=== PATIENT | male | born 1970 ===

== ENCOUNTER 2017-01-31 17:17 | Inpatient (IN) | payer OTHER ==
--- NOTE | ~2017-01-31 | MR18 ---
[facility] A Service of [facility] & [facility] RADIOLOGY TEXT RESULTS PATIENT: LAQUITA MANCIA LOCATION: [facility] 547-01 : [birth year] UNIT #: [id number] AGE: [address]: Cristobal Blackman MD SEX: M ORDER DR: [id number] [facility] [address] [place], [place] [address] [id number] MR#: [id number] Acc #: [id number] NAME: LAQUITA MANCIA : 1970 SEX: M STUDY DATE/TIME: 02/01/2017 17:02 UNIT: [facility] ROOM: [facility] STUDY DESCRIPTION: MR Brain Wo Contrast Attending Physician: Cristobal Blackman M.D. Ordering Physician: Cristobal Blackman M.D. MRI CENTER REPORT This report is preliminary unless electronic signature is present. EXAM MR brain. INDICATIONS Confusion and aphasia. Slurred speech. TECHNIQUE Multiplanar MRI of the brain without contrast. COMPARISON CT head dated 01/31/2017 and 01/07/2017. FINDINGS The midline structures and craniocervical junction are within normal limits. The ventricles and basilar cisterns are normal in size and configuration. No extraaxial collections. Vascular flow voids are unremarkable. IMPRESSION 1. No acute intracranial findings. No acute ischemia. Dictated by... Saul Goode M.D. THIS IS AN ELECTRONICALLY VERIFIED REPORT Saul Goode M.D. at 02/01/2017 11:41 PM MERLENE/logan TD: 02/01/2017 23:26 JOB #: [id number] MRI CENTER REPORT Page 1 of 1 COPY
--- NOTE | ~2017-01-31 | DS ---
Unit #: [id number] #: [id number] Patient: LIVAN BONDS [id number] [address] [address] [id number] I MR#: [id number] NAME: LIVAN BONDS ROOM: 547 Age: 47 Sex: M Admission Date: 01/31/2017 : 1970 Discharge Date: 02/02/2017 Attending Physician: Cristobal Blackman M.D. DISCHARGE SUMMARY PRIMARY DIAGNOSIS Toxic metabolic encephalopathy. SECONDARY DIAGNOSES 1. Urinary retention. 2. Acute kidney injury. 3. History of atrial fibrillation. 4. Chronic back and leg pain. 5. Chronic intermittent leg swelling, per patient. 6. Gastroesophageal reflux disease. 7. Anxiety and depression. HOSPITAL COURSE Mr. Livan Bonds is a 47-year-old male, who is Hungarian speaking, who has a very complicated and sometimes contradictory history. He was admitted primarily for acute kidney injury which, at the time of admission, was suggested to be secondary to ibuprofen, hydrochlorothiazide, Lasix and urinary retention. He certainly does appear to have urinary retention although, at the time of discharge, I am informed by the patient that he is not on Lasix or hydrochlorothiazide although he has been in the past for chronic leg edema. I am unsure how reliable the patient and his rajanie's sister is. Regardless, the patient was treated with Flomax and had a single catheterization of his bladder and then the Hemphill was out for the remaining next 48 hours. Despite this, his creatinine came down from 2.1 to 1.3. I kept him on Flomax and will continue him on Flomax at discharge. Regarding his confusion, it appeared primarily consistent with a toxic or metabolic encephalopathy although he did have some component of aphasia as well so I did check an MRI to make sure he didn't have any evidence of stroke or brain lesion. No stroke or brain lesion was seen and, after the MRI had been done, his outpatient medication list was updated and was markedly different from that listed in the history and physical. The current list that I have for his home medications, and he is somewhat uncertain about this, include: 1. Amiodarone 200 mg daily. 2. Lactulose 10 g p.o. daily. 3. Gabapentin 300 mg p.o. t.i.d. 4. Amitriptyline 100 mg p.o. q. h.s. 5. Lorazepam 1 mg p.o. q.i.d. 6. Hydrocodone 10 mg p.o. q.6 hours p.r.n. pain. 7. Omeprazole 20 mg p.o. daily. 8. Protonix 40 mg p.o. daily. Unit #: [id number] #: [id number] Patient: LIVAN BONDS 9. Baclofen 20 mg p.o. t.i.d. 10. Folic acid 1 mg p.o. daily. 11. Thiamine 100 mg p.o. daily. Not noted on my current list but what has been noted on earlier lists, include: 12. Flecainide. 13. Xarelto. 14. Eliquis. 15. Digoxin. 16. Lyrica. 17. Claritin. Overall, this compilation of polypharmacy in addition to the patient being unclear as to exactly which medications he is on, in addition to the patient having a history of substance abuse certainly suggests that medications played a part in his confusion. His confusion improved daily while here in the hospital. He appears to have had urinary retention which either could be due to benign prostatic hypertrophy or possibly, as a second effect of his medications. After his renal function began to decline, certainly the toxic effects of his polypharmacy could have become more pronounced as his kidneys failed to get rid of the drugs from his system. The patient believes that his antidepressant was the most recently added medication and so I am going to instruct him to stop that for now along with several of his other home medications. I have advised him to stop his gabapentin, stop his amitriptyline, stop his lorazepam, stop his proton pump inhibitors and stop his baclofen as well as stopping Lyrica if he is, in fact, on that although it is not on my most recent home medication list. I suspect staying off those medications will result in continued improvements in his mental status. I have advised him to follow up with his primary care physician for his chronic issues with back and leg pain as well as chronic issues with leg weakness and, in the meantime, I have advised him to use the cane that has been provided to him on previous visits with his regular physician. Due to my concern that my home med list may be somewhat inaccurate, I have advised him that he can restart any medications other than those specifically listed in the Do Not Restart list that I noted above. The only new prescriptions I am going to give the patient is for Lasix 20 mg p.o. daily because the patient and family are both very concerned about his recurrent intermittent edema of his bilateral lower extremities as well as Flomax 0.4 mg q. h.s. I have advised him the need to follow up with the primary care physician within one to two weeks. Metabolic evaluation for confusion was essentially negative as his acute kidney injury alone wouldn't really cause that confusion but includes a negative renal ultrasound, a normal B12 level, a normal TSH, a mildly low free T4 at 0.34, a normal ammonia level at 19. His INR was 1.2 and his PTT was 32, possibly suggesting some history of liver disease taken in coordination with his new med list that was provided to me late in his hospitalization that includes lactulose. His liver function studies and albumin, however, are normal and he did have a digoxin level done here in the hospital at the time of presentation which was 1.3 suggesting that he is, in fact, on digoxin at home. The patient reports using multiple pharmacies and I am unable to get a complete med list from a particular pharmacy. DISCHARGE DISPOSITION To home. Unit #: [id number] #: [id number] Patient: LIVAN BONDS DISCHARGE STATUS Stable. DISCHARGE ACTIVITY With his cane at all times and he can consider getting a walker or a wheeled walker if he feels that this farnaz be helpful for his two and a half year history of recurrent falls. At this time, he doesn't appear to require a wheeled walker based on his ambulation and my exam. DISCHARGE DIET Unrestricted. DISCHARGE FOLLOWUP With his primary care physician in one to two weeks. DISCHARGE MEDICATIONS Please note that this list may be somewhat inaccurate. Please see detailed discussion above in the History of Present Illness. 1. Flomax 0.4 mg p.o. q. h.s. 2. Lasix 20 mg p.o. q. a.m. 3. Amiodarone 200 mg p.o. daily. 4. Lactulose 10 g p.o. daily. 5. Hydrocodone with Tylenol 10/325, one tablet p.o. q.6 hours p.r.n. pain. 6. Folic acid 1 mg p.o. daily. 7. Thiamine 100 mg p.o. daily. The patient cannot remember the name of his previous primary care physician and he is reportedly set up to see a new primary care physician this week. Dictated by... Cristobal Blackman M.D. LITZY/jodee TD: 02/03/2017 07:58 JOB #: [id number] DISCHARGE SUMMARY Page 1 of 1 X Cristobal Blackman MD X DISCHARGE SUMMARY
--- NOTE | ~2017-01-31 | HP ---
Unit #: [id number] #: [id number] Patient: LAQUITA MANCIA [id number] [address] [place], [place] [address] [id number] I MR#: [id number] NAME: LAQUITA MANCIA ROOM: 547 Age: 47 Sex: M Admission Date: 01/31/2017 : 1970 Attending Physician: Ayesha Martinez M.D. HISTORY AND PHYSICAL CHIEF COMPLAINT Acute kidney injury and confusion. HISTORY This 47-year-old male with atrial fibrillation, hypertension, hyperlipidemia, possibly COPD versus asthma, was transferred from [facility] emergency department for acute kidney injury and confusion. The patient himself is a very poor historian, and unfortunately I was unable to get the initial call from [facility] in regards to this patient. Family is not present, nor are they answering their phone. Apparently he was seen at [facility] emergency department 01/07/2017 for leg swelling. A CTA of the chest was performed, which was negative for a PE, Dopplers of the legs were performed, which were negative for blood clots. Head CT at that time was negative. Currently he has continued to have some leg swelling, has felt a bit short of breath, decreased p.o. intake and feels as if he is urinating frequently. He also feels confused. When he presented to [facility] emergency department earlier today, labs showed acute kidney injury with a creatinine of 2.8 and BUN of 33. On examination he has a very full bladder with suprapubic tenderness. Therefore, our nurse cathed him, and he had 725 mL of urine in his bladder. He also takes Lasix, hydrochlorothiazide and ibuprofen. Urine tox screen is positive for TCA only. He states that he no longer drinks alcohol, stopped drinking about one month ago. PAST MEDICAL HISTORY 1. Previous history of alcohol abuse. 2. Anxiety and depression. 3. Atrial fibrillation for which the patient is anticoagulated. 4. DJD. 5. GERD. 6. Hypertension. 7. Hyperlipidemia. 8. COPD versus asthma. 9. Previous admission 2014 for pancreatitis. 10. Spinal stenosis. 11. Left arm skin graft. 12. Right hand surgery. ALLERGIES None. HOME MEDICATIONS I have a medication sheet that was sent by [facility]. This includes Unit #: [id number] #: [id number] Patient: LAQUITA MANCIA Ibuprofen 800 mg q.6 hours as needed; HCTZ 25 mg daily; Xarelto 20 mg q.h.s.; metoprolol 100 mg b.i.d.; Digoxin 0.25 mg daily; Lasix 40 mg daily; albuterol one puff q.i.d. p.r.n.; Pravachol 20 mg q.h.s.; Lyrica 100 mg t.i.d.; Prozac 20 mg 2 tablets daily; flecainide 100 mg b.i.d.; Flexeril 10 mg t.i.d. p.r.n.; Claritin 10 mg b.i.d.; Elavil 100 mg q.h.s.; omeprazole 20 mg b.i.d. FAMILY HISTORY Alcohol abuse, diabetes and heart disease. SOCIAL HISTORY The patient states that he lives with his girlfriend. Smokes an occasional cigarette. Stopped drinking alcohol a month ago. Denies illicit drug use. REVIEW OF SYSTEMS It is difficult to obtain as patient is confused. PHYSICAL EXAMINATION GENERAL: Confused, moderately obese, 47-year-old male who currently is in no acute distress. VITAL SIGNS: Prior to arrival pulse 61, respirations 11, blood pressure 102/53, O2 saturation 93%, temperature 97.2. HEENT: Eyes - PERRLA, extraocular muscles are intact. Pharynx benign with dry mucosal membranes. NECK: Supple without adenopathy or thyromegaly. CHEST: Clear. CARDIAC: Normal S1 and S2 without murmur. ABDOMEN: Bowel sounds are present. Suprapubic tenderness with a very full bladder on exam. No definite hepatosplenomegaly. EXTREMITIES: With mild edema. Pedal pulses are present. No ulcers on the feet. NEUROLOGIC: Patient is awake and alert. He is oriented only to person. His cranial nerves are intact. He has equal strength throughout but is weak on exam. Tends to fall backwards when attempting to sit up. No definite asterixis. DIAGNOSTIC STUDIES LABS: Drawn prior to arrival. Hematocrit 34.8, normal MCV, white blood count and platelet count. SMA 12 - chloride 110, CO2 23, glucose 120, BUN 33, creatinine 2.8, up from a normal BUN and creatinine of 2014. Calcium 8.3, phosphorus 6.7, normal magnesium. Urine tox screen positive for TCA. Alcohol level less than 5. Urinalysis is negative. IMAGING STUDIES: Head CT - no acute disease. CARDIOLOGY STUDIES: EKG - normal sinus rhythm rate 61. Somewhat poor R wave progression, left axis deviation. ASSESSMENT 1. Acute kidney injury likely multifactorial due to urinary retention, Ibuprofen, in conjunction with HCTZ and Lasix. Urinalysis shows benign sediment. When a catheter was placed, the patient had 725 mL or urine in his bladder. 2. Confusion, which may be in part related to medications. 3. History of atrial fibrillation, anticoagulated, currently in normal sinus rhythm. 4. Prior history of alcohol abuse, but none for the past month. Unit #: [id number] #: [id number] Patient: LAQUITA MANCIA 5. GERD. 6. Anxiety and depression. 7. History of hypertension. 8. Hyperlipidemia. 9. DJD and chronic pain. 10. Poor data base. PLANS 1. Start Flomax, may need an indwelling Hemphill catheter tonight, patient was straight cathed initially by the nurse. 2. Gentle IV fluids and recheck labs later tonight. 3. Check renal ultrasound. 4. Will verify home medication list. In the meantime will discontinue HCTZ, Lasix, nonsteroidal anti-inflammatory drugs, hold all sedatives and decrease metoprolol. Hold Digoxin. 5. Obtain echo. 6. Ammonia level, ABG. 7. Check B12 level, thyroid function test, serum protein electrophoresis, digoxin level. 8. Consultants depending on above. 9. Will hold Lyrica given pedal edema. Dictated by Meena Valentino/ronda TD: 02/01/2017 06:35 JOB #: [id number] HISTORY AND PHYSICAL Page 1 of 1 X Shannon Stone MD X HISTORY AND PHYSICAL
--- NOTE | ~2017-01-31 | US77 ---
[facility] A Service of [facility] & [facility] RADIOLOGY TEXT RESULTS PATIENT: LAQUITA MANCIA LOCATION: [facility] 54- : [birth year] UNIT #: [id number] AGE: [address]: Cristobal Blackman MD SEX: M ORDER DR: [id number] [facility] [address]. [place], [place] [address] [id number] MR#: [id number] Acc #: [id number] NAME: LAQUITA MANCIA : 1970 SEX: M STUDY DATE/TIME: 02/01/2017 8:25 UNIT: [facility] ROOM: [facility] STUDY DESCRIPTION: US Kidney Bilateral Complete Attending Physician: Cristobal Blackman M.D. Ordering Physician: Ayesha Martinez M.D. MEDICAL IMAGING REPORT This report is preliminary unless electronic signature is present EXAM Renal ultrasound, 02/01/2017 HISTORY Abdominal pain for 2 years. Left flank pain for the past 3 days with painful urination for 3 days. Abnormal renal function tests. Elevated BUN of 24, elevated creatinine of 1.5. Abnormally low GFR of 54.3 today. FINDINGS The right kidney measures 11.4 cm while the left kidney measures 11.0 cm in longitudinal dimensions. There is no evidence of hydronephrosis or nephrolithiasis. No cystic or solid mass lesions were seen on either kidney and there is normal renal cortical echogenicity. Images of the bladder are normal. IMPRESSION 1. Negative renal ultrasound. 2. Images of the bladder are normal. Dictated by... Vishnu Linda M.D. THIS IS AN ELECTRONICALLY VERIFIED REPORT Vishnu Linda M.D. at 02/03/2017 8:03 AM EDILIA/yonatan TD: 02/01/2017 14:49 JOB #: [id number] MEDICAL IMAGING REPORT Page 1 of 1 COPY
[~2017-01-31 17:17] MED LIST: AMITRIPTYLINE100 MG PO; BACLOFEN20 M1 PO; CORDARONE200 M1 PO; ELIQUIS5 MG PO; FOLIC ACID1 MG PO; GABAPENTIN300 M2 PO; HYDROCODON-ACE1 EAC5 PO; LACTULOSE10 G/15 M1 PO; LORAZEPAM1 MG PO; OMEPRAZOLE20 M2 PO; PROTONIX PO; THIAMINE HCL100 MG PO
[2017-02-01 00:24] LABS: BASOPHIL# 0.1 X10e3 (0-0.3); BASOPHIL% 0.9 % (0-2.5); EOSINOPHIL# 0.3 X10e3 (0-0.7); EOSINOPHIL% 4.8 % (0.0-7.0); HEMATOCRIT 38.4 % (38.0-50.0); HEMOGLOBIN 12.5 gm/dL (13.0-16.0); LYMPHOCYTE# 2.4 X10e3 (1.0-3.5); LYMPHOCYTE% 33.4 % (17.0-45.0); MEAN CELL VOLUME 88.9 FL (83-96); MEAN CORPUSCULAR HEMOGLOBIN 28.9 PG (28-34); MEAN CORPUSCULAR HGB CONC 32.5 g/dL (30-36); MEAN PLATELET VOLUME 8.5 FL (6.5-11.5); MONOCYTE# 1.4 X10e3 (0-1.0); MONOCYTE% 19.4 % (3.0-12.0); NEUTROPHIL# 2.9 X10e3 (1.5-7.1); NEUTROPHIL% 41.5 % (40-75); PLATELET COUNT 206 X10e3 (140-420); RED BLOOD COUNT 4.32 X10e (3.90-5.60); RED CELL DISTRIBUTION WIDTH 13.1 % (11.0-15.5); WHITE BLOOD COUNT 7.1 X10e3 (4.0-10.5)
[2017-02-01 00:38] LABS: DIFF IND NO
[2017-02-01 00:54] LABS: INR 1.2; PROTHROMBIN TIME (PATIENT) 12.8 SECONDS (10.0-11.7)
[2017-02-01 00:55] LABS: ALBUMIN SERUM 3.7 g/dL (3.5-5.0); BILIRUBIN,TOTAL 0.8 mg/dL (0.2-2.0); BUN/CREATININE RATIO 12.85; CALCIUM SERUM 8.4 mg/dL (8.4-10.2); CREATININE SERUM 2.1 mg/dL (0.6-1.4); DIGOXIN (LANOXIN) 1.3 ng/ml (1.0-2.0); GLOM FILT RATE Estimated 36.1 mL/min (>60); PROTEIN TOTAL SERUM 6.6 g/dL (6.0-8.3)
[2017-02-01 06:48] LABS: BASOPHIL# 0.1 X10e3 (0-0.3); BASOPHIL% 0.9 % (0-2.5); EOSINOPHIL# 0.3 X10e3 (0-0.7); EOSINOPHIL% 4.4 % (0.0-7.0); HEMATOCRIT 36.6 % (38.0-50.0); HEMOGLOBIN 11.8 gm/dL (13.0-16.0); LYMPHOCYTE# 2.2 X10e3 (1.0-3.5); MEAN CELL VOLUME 89.1 FL (83-96); MEAN CORPUSCULAR HEMOGLOBIN 28.8 PG (28-34); MEAN CORPUSCULAR HGB CONC 32.3 g/dL (30-36); MEAN PLATELET VOLUME 8.7 FL (6.5-11.5); MONOCYTE# 1.1 X10e3 (0-1.0); MONOCYTE% 17.5 % (3.0-12.0); NEUTROPHIL# 2.7 X10e3 (1.5-7.1); NEUTROPHIL% 43.2 % (40-75); PLATELET COUNT 199 X10e3 (140-420); RED BLOOD COUNT 4.11 X10e (3.90-5.60); WHITE BLOOD COUNT 6.3 X10e3 (4.0-10.5)
[2017-02-01 06:54] LABS: DIFF IND NO
[2017-02-01 07:13] LABS: CALCIUM SERUM 8.2 mg/dL (8.4-10.2); CREATININE SERUM 1.5 mg/dL (0.6-1.4); GLOM FILT RATE Estimated 54.3 mL/min (>60); POTASSIUM 3.9 mmol/L (3.5-5.1)
[2017-02-01 07:22] LABS: THYROID STIMULATING HORMONE 0.54 uIU/ml (0.34-5.60)
[2017-02-01 07:29] LABS: FREE THYROXIN (T4) 0.34 ng/dL (0.58-1.64)
[2017-02-02 06:04] LABS: HEMATOCRIT 33.3 % (38.0-50.0); HEMOGLOBIN 11.3 gm/dL (13.0-16.0); MEAN CORPUSCULAR HEMOGLOBIN 29.4 PG (28-34); MEAN CORPUSCULAR HGB CONC 33.8 g/dL (30-36); MEAN PLATELET VOLUME 8.3 FL (6.5-11.5); RED BLOOD COUNT 3.82 X10e (3.90-5.60); RED CELL DISTRIBUTION WIDTH 12.9 % (11.0-15.5); WHITE BLOOD COUNT 6.6 X10e3 (4.0-10.5)
[2017-02-02 07:14] LABS: BUN/CREATININE RATIO 13.07; CALCIUM SERUM 7.8 mg/dL (8.4-10.2); CREATININE SERUM 1.3 mg/dL (0.6-1.4); GLOM FILT RATE Estimated 64.5 mL/min (>60); POTASSIUM 3.9 mmol/L (3.5-5.1)
[2017-02-02] MEDS ORDERED: FLOMAX0.4 M1 PO (15:10)
[2017-02-02] MEDS ORDERED: LASIX20 MG PO (15:10)
[2017-02-04 00:47] LABS: SPE A1GLOB (PNL) 0.3 g/dL (0.2-0.3); SPE A2GLOB (PNL) 0.5 g/dL (0.5-0.9); SPE ALB (PNL) 3.5 g/dL (3.8-4.8); SPE BETA 1 GLOBULIN 0.5 g/dL (0.4-0.6); SPE BETA 2 GLOBULIN 0.3 g/dL (0.2-0.5); SPETP (PNL) 6.1 g/dL (6.1-8.1)
== END 2017-02-02 18:08 | disposition home or self-care (01) | DRG 682 ==
LOC: CEDOF 17:17 → C5B 17:17 → CEDOF 17:17 → C5B 21:00 → CEDOF 21:00 → C5B 22:48
PROVIDERS: Family Medicine; Internal Medicine
PROC: B24BZZZ Ultrasonography of Heart with Aorta (ICD-10-PCS; principal; 2017-02-01)
DX: N17.9 Acute kidney failure, unspecified (principal); G92 Toxic encephalopathy; I48.2 Chronic atrial fibrillation; R47.01 Aphasia; F41.9 Anxiety disorder, unspecified; F32.9 Major depressive disorder, single episode, unspecified; R33.9 Retention of urine, unspecified; Z79.01 Long term (current) use of anticoagulants; G89.29 Other chronic pain; M54.9 Dorsalgia, unspecified; M79.606 Pain in leg, unspecified; K21.9 Gastro-esophageal reflux disease without esophagitis; T39.315A Adverse effect of propionic acid derivatives, initial encounter; T50.2X5A Adverse effect of carbonic-anhydrase inhibitors, benzothiadiazides and other diuretics, initial encounter; T50.1X5A Adverse effect of loop [high-ceiling] diuretics, initial encounter; Y92.9 Unspecified place or not applicable; Z72.0 Tobacco use; Z81.1 Family history of alcohol abuse and dependence; Z83.3 Family history of diabetes mellitus; Z82.49 Family history of ischemic heart disease and other diseases of the circulatory system
CPT/HCPCS: 70551; 76770; 80048; 80053; 80162; 82140; 82607; 84165; 84439; 84443; 85025; 85027; 85610; 85730; 93306; 94640; 94760